=== PATIENT | female | born 1970 | race Caucasian/White ===

== ENCOUNTER 2021-02-09 14:39 | Inpatient (IN) | payer OTHER ==
[~2021-02-09] VITALS: Ht 175.3 cm; Wt 76.2 kg
[2021-02-09] MEDS ORDERED: PANTOPRAZOLE 80 MG in SODIUM CHLORIDE 0.9% 100 ML IV SCH (15:00)
[2021-02-09] MEDS ORDERED: PLEASE ENTER HEIGHT AND WEIGHT MC SCH (15:00)
[2021-02-09] MEDS ORDERED: SODIUM CHLORIDE FLUSH 10ML SYR IVF ONE (15:00)
[2021-02-09] MEDS ORDERED: PANTOPRAZOLE 80 MG in SODIUM CHLORIDE 0.9% 50 ML IVPB ONE (15:00)
--- NOTE | 2021-02-09 15:05 | NUR ---
ZANDRA RAYO PT GOWN SET AT [address]
[2021-02-09 15:13] LABS: MEAN CORPUSCULAR HEMOGLOBIN 40.6 pg (27.0-34.8); MEAN CORPUSCULAR HGB CONC 34.8 g/dL (32.4-35.8); MEAN PLATELET VOLUME 9.9 fL (7.4-10.4); PLATELET COUNT 91 x10^3/uL (130-400); RED BLOOD COUNT 1.74 x10^6/uL (3.82-5.3); RED CELL DISTRIBUTION WIDTH 24.3 % (9.6-15.2)
[2021-02-09 15:22] LABS: ALANINE AMINOTRANSFERASE 21 U/L (12-78); ALBUMIN 1.3 g/dL (3.4-5.0); ANION GAP 29 mmol/L (5-15); CALCIUM 7.1 mg/dL (8.5-10.1); CHLORIDE 86 mmol/L (98-107); CREATININE 3.69 mg/dL (0.55-1.02)
[2021-02-09 15:23] LABS: INTERNATIONAL NORMALIZED RATIO 2.54 (0.93-1.1); PROTHROMBIN TIME 26.7 Seconds (9.6-11.5)
[2021-02-09 15:24] LABS: ALKALINE PHOSPHATASE 99 U/L (45-117); BILIRUBIN,TOTAL 7.8 mg/dL (0.2-1.0); TOTAL PROTEIN 5.3 g/dL (6.4-8.2)
[2021-02-09] MEDS ORDERED: NS + 40MEQ KCL 1,000 ML IV ONE ×2 (15:42→16:00)
--- NOTE | 2021-02-09 15:46 | NUR ---
TO CT VIA [facility]
[2021-02-09 16:05] LABS: BAND#(MANUAL) 0.42 x10^3/uL; BANDS%(MANUAL) 5 % (0-7); BASOS#(MANUAL) 0.08 x10^3/uL (0-0.1); BASOS% (MANUAL) 1 % (0-1); LYMPH#(MANUAL) 0.83 x10^3/uL (1-3.4); LYMPHS% (MANUAL) 10 % (22-44); METAMYELOCYTES# (MANUAL) 0.08 x10^3/uL (0-0); METAMYELOCYTES% (MANUAL) 1 % (0-1); SEG#(MANUAL) 6.89 x10^3/uL (1.8-6.8); SEGS% (MANUAL) 83 % (42-75)
[2021-02-09 16:07] LABS: ANISOCYTOSIS 2+
[2021-02-09 16:08] LABS: HYPOCHROMIA 1+; POLYCHROMASIA 2+
[2021-02-09 16:10] LABS: <PLATELET ESTIMATE> DECREASED; <PLT MORPHOLOGY> NORMAL PLT MORPH; TEAR DROPS 1+
[2021-02-09] MEDS ORDERED: BISACODYL 10 MG SUPP PR PRN (16:30)
[2021-02-09] MEDS ORDERED: ACETAMINOPHEN 325 MG TABLET PO PRN (16:30)
[2021-02-09] MEDS ORDERED: KSCALE TO 4.0 IV SCH (16:30)
[2021-02-09] MEDS ORDERED: OXYcodone IR 5MG TABLET PO PRN (16:30)
[2021-02-09] MEDS ORDERED: SODIUM CHLORIDE 0.9%, 500ML IVBOLUS ONE (16:30)
[2021-02-09] MEDS ORDERED: ONDANSETRON 2MG/ML, 2ML IVPush PRN (16:30)
[2021-02-09] MEDS ORDERED: POLYETHYLENE GLYCOL 17 GM PACKET PO PRN (16:30)
[2021-02-09] MEDS: PANTOPRAZOLE 80 MG in SODIUM CHLORIDE 0.9% 100 ML IV SCH (16:30)
[2021-02-09] MEDS ORDERED: OCTREOTIDE 500 MCG in SODIUM CHLORIDE 0.9% 99 ML IV PRN (16:30)
[2021-02-09] MEDS ORDERED: CEFTRIAXONE 1,000 MG in DEXTROSE 5% 50 ML IVPB SCH (16:30)
[2021-02-09] MEDS ORDERED: NS + 40MEQ KCL 1,000 ML IV SCH (16:30)
[2021-02-09] MEDS ORDERED: OCTREOTIDE 100MCG/ML, 1ML (0.1MG/ML) IV ONE (16:30)
[2021-02-09 16:43] VITALS: BP 85/54
[2021-02-09 17:01] VITALS: BP 88/54
[2021-02-09] MEDS ORDERED: FENTANYL PF 100 MCG/2ML IVPush ONE (17:30)
[2021-02-09 17:35] VITALS: BP 93/46
[2021-02-09] MEDS: NOREPINEPHRINE 8 MG in SODIUM CHLORIDE 0.9% 242 ML IV PRN (17:39)
[2021-02-09] MEDS ORDERED: FENTANYL PF 100 MCG/2ML ONE (17:40)
[2021-02-09 17:58] LABS: CHLORIDE,URINE RANDOM 13 mmol/L; POTASSIUM,URINE RANDOM 18 mmol/L
[2021-02-09 18:00] LABS: SODIUM,URINE RANDOM < 5 mmol/L
[2021-02-09 18:10] LABS: MICROSCOPIC INDICATED
[2021-02-09] MEDS ORDERED: OCTREOTIDE 100MCG/ML, 1ML (0.1MG/ML) ONE (18:18)
[2021-02-09] MEDS ORDERED: AZITHROMYCIN 500 MG in SODIUM CHLORIDE 0.9% 250 ML IV ONE (18:30)
--- NOTE | 2021-02-09 18:48 | NUR ---
SEE PAPER CHART FOR FULL VS DISCLOSURE
[2021-02-09] MEDS ORDERED: PHYTONADIONE 10 MG in SODIUM CHLORIDE 0.9% 50 ML IV ONE (19:30)
[2021-02-09 20:42] LABS: ANION GAP 23 mmol/L (5-15); CALCIUM 6.7 mg/dL (8.5-10.1); CHLORIDE 90 mmol/L (98-107); CREATININE 3.58 mg/dL (0.55-1.02)
[2021-02-09] MEDS ORDERED: MAGNESIUM SULFATE PMX 2GM/50ML 50 ML IV ONE (21:00)
[2021-02-09] MEDS ORDERED: SODIUM CHLORIDE 0.9% 1,000 ML IV SCH (21:00)
[2021-02-09] MEDS: KSCALE TO 4.0 IV SCH (21:00)
[2021-02-09] MEDS ORDERED: POTASSIUM CHLORIDE 30 MEQ in SODIUM CHLORIDE 0.9% 100 ML IV ONE (21:30)
[2021-02-10] MEDS: OCTREOTIDE 1,250 MCG in SODIUM CHLORIDE 0.9% 247.5 ML IV PRN (01:41)
[2021-02-10] MEDS: PANTOPRAZOLE 80 MG in SODIUM CHLORIDE 0.9% 100 ML IV SCH ×3 (01:41→23:09)
[2021-02-10 01:49] LABS: ANION GAP 20 mmol/L (5-15); CALCIUM 6.7 mg/dL (8.5-10.1); CHLORIDE 92 mmol/L (98-107); CREATININE 3.68 mg/dL (0.55-1.02)
[2021-02-10] MEDS ORDERED: POTASSIUM CHLORIDE PMX 100 ML IV ONE ×2 (02:30→12:00)
[2021-02-10] MEDS: KSCALE TO 4.0 IV SCH (02:31)
[2021-02-10 06:13] LABS: MEAN CORPUSCULAR HEMOGLOBIN 37.9 pg (27.0-34.8); MEAN CORPUSCULAR HGB CONC 34.7 g/dL (32.4-35.8); MEAN PLATELET VOLUME 9.6 fL (7.4-10.4); PLATELET COUNT 137 x10^3/uL (130-400); RED BLOOD COUNT 2.05 x10^6/uL (3.82-5.3); RED CELL DISTRIBUTION WIDTH 26.3 % (9.6-15.2)
[2021-02-10 06:24] LABS: INTERNATIONAL NORMALIZED RATIO 2.16 (0.93-1.1); PROTHROMBIN TIME 22.8 Seconds (9.6-11.5)
[2021-02-10 06:26] LABS: ALANINE AMINOTRANSFERASE 22 U/L (12-78); ALBUMIN 1.3 g/dL (3.4-5.0); ANION GAP 16 mmol/L (5-15); CALCIUM 6.6 mg/dL (8.5-10.1); CHLORIDE 93 mmol/L (98-107); CREATININE 3.69 mg/dL (0.55-1.02)
[2021-02-10 06:28] LABS: ALKALINE PHOSPHATASE 92 U/L (45-117); BILIRUBIN,TOTAL 8.1 mg/dL (0.2-1.0)
[2021-02-10 06:51] LABS: BAND#(MANUAL) 0.76 x10^3/uL; BANDS%(MANUAL) 6 % (0-7); LYMPH#(MANUAL) 0.89 x10^3/uL (1-3.4); LYMPHS% (MANUAL) 7 % (22-44); METAMYELOCYTES# (MANUAL) 0.25 x10^3/uL (0-0); METAMYELOCYTES% (MANUAL) 2 % (0-1); MONOS#(MANUAL) 0.51 x10^3/uL (0.3-2.7); MONOS% (MANUAL) 4 % (2-9); SEG#(MANUAL) 10.29 x10^3/uL (1.8-6.8); SEGS% (MANUAL) 81 % (42-75)
[2021-02-10 06:52] LABS: <PLATELET ESTIMATE> DECREASED; <PLT MORPHOLOGY> NORMAL PLT MORPH; ANISOCYTOSIS 1+; POLYCHROMASIA 1+; TEAR DROPS 1+
[2021-02-10] MEDS ORDERED: CHLORDIAZEPOXIDE 25 MG CAPSULE PO SCH (07:30)
[2021-02-10] MEDS ORDERED: LORazepam 2 MG/ML, 1ML IVPush PRN (07:30)
[2021-02-10] MEDS: METRONIDAZOLE PMX 500MG/100ML 100 ML IV SCH ×2 (07:46→18:01)
[2021-02-10] MEDS: NOREPINEPHRINE 8 MG in SODIUM CHLORIDE 0.9% 242 ML IV PRN ×2 (07:46→20:39)
[2021-02-10] MEDS: SENNA/DOCUSATE TABLET PO SCH (08:28)
[2021-02-10] MEDS: THIAMINE 200 MG in SODIUM CHLORIDE 0.9% 50 ML IV SCH (08:49)
[2021-02-10 09:06] LABS: ANION GAP 17 mmol/L (5-15); CALCIUM 6.6 mg/dL (8.5-10.1); CHLORIDE 93 mmol/L (98-107); CREATININE 3.79 mg/dL (0.55-1.02)
[2021-02-10] MEDS ORDERED: CALCIUM CHLORIDE 13.6 MEQ in SODIUM CHLORIDE 0.9% 100 ML IV ONE (10:00)
[2021-02-10] MEDS ORDERED: PHYTONADIONE 10 MG in SODIUM CHLORIDE 0.9% 50 ML IV ONE (10:00)
[2021-02-10] MEDS: DIAZEPAM 5 MG/ML, 2ML IV SCH ×3 (11:00→23:09)
[2021-02-10] MEDS: ALBUTEROL/IPRATROPIUM 2.5MG/0.5MG, 3 ML INLINE SCH ×3 (11:10→23:01)
[2021-02-10] MEDS ORDERED: ALBUTEROL/IPRATROPIUM 2.5MG/0.5MG, 3 ML ONE (12:36)
[2021-02-10] MEDS: ALBUMIN HUMAN 25% 100 ML IV SCH ×2 (13:01→20:36)
[2021-02-10] MEDS ORDERED: MIDAZOLAM 1 MG/ML, 5ML ONE (13:03)
[2021-02-10] MEDS ORDERED: PROPOFOL 10 MG/ML, 100ML IV ONE (13:03)
[2021-02-10] MEDS ORDERED: ETOMIDATE 20 MG/10 ML ONE (13:03)
[2021-02-10] MEDS: CEFTRIAXONE 2,000 MG in DEXTROSE 5% 50 ML IVPB SCH (16:00)
[2021-02-11] VITALS (8 sets, daily range): BP systolic 104–121; BP diastolic 63–78
[2021-02-11] MEDS: METRONIDAZOLE PMX 500MG/100ML 100 ML IV SCH ×3 (01:58→16:34)
[2021-02-11] MEDS: OCTREOTIDE 1,250 MCG in SODIUM CHLORIDE 0.9% 247.5 ML IV PRN (01:58)
[2021-02-11] MEDS: ALBUTEROL/IPRATROPIUM 2.5MG/0.5MG, 3 ML INLINE SCH ×3 (03:14→10:22)
[2021-02-11 04:06] LABS: MEAN CORPUSCULAR HEMOGLOBIN 38.4 pg (27.0-34.8); MEAN CORPUSCULAR HGB CONC 35.2 g/dL (32.4-35.8); MEAN PLATELET VOLUME 9.2 fL (7.4-10.4); RED BLOOD COUNT 1.63 x10^6/uL (3.82-5.3); RED CELL DISTRIBUTION WIDTH 26.6 % (9.6-15.2)
[2021-02-11 04:15] LABS: ALANINE AMINOTRANSFERASE 17 U/L (12-78); ANION GAP 10 mmol/L (5-15); CALCIUM 6.8 mg/dL (8.5-10.1); CHLORIDE 95 mmol/L (98-107); INTERNATIONAL NORMALIZED RATIO 1.76 (0.93-1.1); PROTHROMBIN TIME 18.6 Seconds (9.6-11.5)
[2021-02-11] MEDS: ALBUMIN HUMAN 25% 100 ML IV SCH (04:16)
[2021-02-11 04:18] LABS: ALKALINE PHOSPHATASE 74 U/L (45-117); BILIRUBIN,TOTAL 7.3 mg/dL (0.2-1.0); CREATININE 3.91 mg/dL (0.55-1.02); TOTAL PROTEIN 5.1 g/dL (6.4-8.2)
[2021-02-11 04:37] LABS: PLATELET COUNT 103 x10^3/uL (130-400)
[2021-02-11 04:43] LABS: BAND#(MANUAL) 0.37 x10^3/uL; BANDS%(MANUAL) 6 % (0-7); LYMPH#(MANUAL) 1.53 x10^3/uL (1-3.4); LYMPHS% (MANUAL) 25 % (22-44); METAMYELOCYTES# (MANUAL) 0.06 x10^3/uL (0-0); METAMYELOCYTES% (MANUAL) 1 % (0-1); MONOS#(MANUAL) 0.06 x10^3/uL (0.3-2.7); MONOS% (MANUAL) 1 % (2-9); MYELOCYTES# (MANUAL) 0.06 x10^3/uL (0-0); MYELOCYTES% (MANUAL) 1 % (0-0); REACTIVE LYMPHS # (MANUAL) 0.06 x10^3/uL (0-0); REACTIVE LYMPHS % (MANUAL) 1 % (0-0); SEG#(MANUAL) 3.97 x10^3/uL (1.8-6.8); SEGS% (MANUAL) 65 % (42-75)
[2021-02-11 04:44] LABS: ANISOCYTOSIS 2+; POLYCHROMASIA 1+; TEAR DROPS 1+
[2021-02-11 04:45] LABS: <PLATELET ESTIMATE> DECREASED; OVALOCYTES 1+; PMNS WITH VACUOLES 1+
[2021-02-11 04:46] LABS: LARGE PLATELETS 1+
[2021-02-11] MEDS: DIAZEPAM 5 MG/ML, 2ML IV SCH ×2 (05:21→11:06)
[2021-02-11] MEDS ORDERED: PHYTONADIONE 10 MG in SODIUM CHLORIDE 0.9% 50 ML IV ONE (06:30)
[2021-02-11] MEDS ORDERED: MAGNESIUM SULFATE PMX 2GM/50ML 50 ML IV ONE (06:30)
[2021-02-11] MEDS ORDERED: PROPOFOL 100 ML IV ONE (07:22)
[2021-02-11] MEDS ORDERED: PROPOFOL 100 ML IV PRN (07:30)
[2021-02-11] MEDS: SENNA/DOCUSATE TABLET PO SCH (08:29)
[2021-02-11] MEDS: POTASSIUM CHLORIDE 20 MEQ PACKET PO SCH ×2 (08:33→16:34)
[2021-02-11] MEDS ORDERED: LACTULOSE 20 GM/30 ML UDC PO SCH (09:00)
[2021-02-11] MEDS: PANTOPRAZOLE 80 MG in SODIUM CHLORIDE 0.9% 100 ML IV SCH ×2 (09:01→16:34)
[2021-02-11] MEDS ORDERED: FUROSEMIDE 100 MG/10 ML IV SCH (10:00)
[2021-02-11] MEDS: THIAMINE 200 MG in SODIUM CHLORIDE 0.9% 50 ML IV SCH (10:09)
[2021-02-11] MEDS ORDERED: SODIUM CHLORIDE 0.9% 250 ML IV ONE (11:00)
[2021-02-11] MEDS ORDERED: LORazepam 2 MG/ML, 1ML IV ONE (16:00)
[2021-02-11] MEDS ORDERED: MORPHINE SULFATE 4 MG/ML, 1ML IV ONE (16:00)
[2021-02-11] MEDS ORDERED: MORPHINE SULFATE 4 MG/ML, 1ML IV PRN (16:00)
[2021-02-11] MEDS ORDERED: ATROPINE OPHTH SOLN 1%, 5ML PO PRN (16:00)
[2021-02-11] MEDS ORDERED: LORazepam 2 MG/ML, 1ML IV PRN (16:00)
[2021-02-11] MEDS: CEFTRIAXONE 2,000 MG in DEXTROSE 5% 50 ML IVPB SCH (16:30)
== END 2021-02-11 21:00 | disposition expired | DRG 871 ==
LOC: ED 15:26 → EDIP 16:11 → CCU 18:40 → 4NW 02-11 17:04
PROVIDERS: ADMIT Internal Medicine; ATTEND Internal Medicine
PROC: 30233N1 Transfusion of Nonautologous Red Blood Cells into Peripheral Vein, Percutaneous Approach (ICD-10-PCS; principal; 2021-02-09)
PROC: 0T9B70Z Drainage of Bladder with Drainage Device, Via Natural or Artificial Opening (ICD-10-PCS; 2021-02-09)
PROC: 02H633Z Insertion of Infusion Device into Right Atrium, Percutaneous Approach (ICD-10-PCS; 2021-02-09)
PROC: B548ZZA Ultrasonography of Superior Vena Cava, Guidance (ICD-10-PCS; 2021-02-09)
PROC: 0B918ZZ Drainage of Trachea, Via Natural or Artificial Opening Endoscopic (ICD-10-PCS; 2021-02-10)
PROC: 5A1935Z Respiratory Ventilation, Less than 24 Consecutive Hours (ICD-10-PCS; 2021-02-10)
PROC: 0BH17EZ Insertion of Endotracheal Airway into Trachea, Via Natural or Artificial Opening (ICD-10-PCS; 2021-02-10)
DX: A41.9 Sepsis, unspecified organism (principal); E43 Unspecified severe protein-calorie malnutrition; G93.41 Metabolic encephalopathy; J96.01 Acute respiratory failure with hypoxia; N17.0 Acute kidney failure with tubular necrosis; J18.9 Pneumonia, unspecified organism; D62 Acute posthemorrhagic anemia; D68.9 Coagulation defect, unspecified; E87.1 Hypo-osmolality and hyponatremia; E87.2 Acidosis; F10.239 Alcohol dependence with withdrawal, unspecified; N39.0 Urinary tract infection, site not specified; J44.0 Chronic obstructive pulmonary disease with (acute) lower respiratory infection; D53.9 Nutritional anemia, unspecified; D69.6 Thrombocytopenia, unspecified; E16.2 Hypoglycemia, unspecified; E83.51 Hypocalcemia; E86.1 Hypovolemia; E87.6 Hypokalemia; F12.90 Cannabis use, unspecified, uncomplicated; F17.200 Nicotine dependence, unspecified, uncomplicated; F32.9 Major depressive disorder, single episode, unspecified; K70.11 Alcoholic hepatitis with ascites; K72.90 Hepatic failure, unspecified without coma; K74.60 Unspecified cirrhosis of liver; Z51.5 Encounter for palliative care; F41.1 Generalized anxiety disorder; W01.0XXA Fall on same level from slipping, tripping and stumbling without subsequent striking against object, initial encounter; Y93.89 Activity, other specified; Y92.89 Other specified places as the place of occurrence of the external cause; Y99.8 Other external cause status; Z81.1 Family history of alcohol abuse and dependence; Z90.710 Acquired absence of both cervix and uterus; Z68.24 Body mass index [BMI] 24.0-24.9, adult
CPT/HCPCS: 31622; 36415; 36556; 36600; 70450; 71045; 74018; 76700; 80048; 80053; 80074; 81001; 82140; 82330; 82436; 82533; 82570; 82607; 82803; 82962; 83605; 83690; 83735; 84100; 84133; 84300; 84443; 85014; 85018; 85025; 85610; 85730; 86850; 86900; 86923; 87040; 87070; 87077; 87081; 87086; 87147; 87186; 87205; 94002; 94003; 94640; 96374; 99291; G0378; J0456; J0696; J1940; J2250; J2354; J2704; J3010; J3360; J3411; J3430; J3480; P9047; C9113; J2060; J2270; J3475; J7030; J7040; J7050; P9016